=== PATIENT | male | born 1945 | race Caucasian/White ===

== ENCOUNTER 2016-12-16 06:28 | Inpatient (IN) | payer MEDICARE, OTHER ==
[2016-12-12 15:35] LABS: HEMOGLOBIN 15.5 g/dL (13.6-17.8)
[2016-12-12 15:51] LABS: BUN (BLOOD UREA NITROGEN) 23 MG/DL (6-23); CALCIUM, SERUM 9.8 MG/DL (8.5-10.4); CHLORIDE, SERUM 106 MMOL/L (96-112); CO2 (CARBON DIOXIDE) 30 MMOL/L (24-34); CREATININE 0.94 MG/DL (0.70-1.30); GFR AFRICAN AMERICAN 93 ML/MIN (>=60); GFR NON AFRICAN AMERICAN 80 ML/MIN (>=60); GLUCOSE, SERUM 88 MG/DL (60-99)
[2016-12-12 15:52] LABS: POTASSIUM, SERUM 5.2 MMOL/L (3.5-5.3); SODIUM, SERUM 141 MMOL/L (135-148)
--- NOTE | ~2016-12-16 | HP ---
History And Physical [facility] [address] [place]. [address] NAME: PETER PINON : 41 STATUS : ADM IN [facility]#: [id number] AGE: 71 ADM/REG DATE : 12/16/16 MR#: [id number] REPORT SERV DATE: 12/16/16 DICTATED BY: ARMEN BURRELL DATE: 12/16/16 REPORT STATUS : Draft TRANSCRIBED BY: MODL DATE: 12/16/16 DATE OF ADMISSION: 12/16/2016 HISTORY: The patient is a 71-year-old male with a high-grade carotid stenosis on CT scan. He has no symptoms. He has no history of stroke symptoms. He has no other current health complaints. REVIEW OF SYSTEMS: He denies chest pain, palpitations, shortness of breath, cough, GI, complaints. Denies fever, chills, or systemic complaints. Past medical history, medications, allergies are listed in full on the MAR. ILLNESSES: Aortic stenosis, coronary artery disease, hypercholesterolemia, atrial fibrillation, benign hypertension, hypothyroidism. SURGICAL HISTORY: Aortic valve repair, rotator cuff repair. SOCIAL HISTORY: Significant for a reformed smoker. FAMILY HISTORY: Noncontributory. PHYSICAL EXAMINATION: GENERAL: The patient is thin, healthy appearing, no distress. LUNGS: Clear bilaterally. HEART: Rate and rhythm. NEURO: He is alert and oriented. Preserved motor function in the lower extremities. IMPRESSION: Carotid stenosis, high grade. PLAN: The plan is for carotid endarterectomy. The risks, benefits, alternatives were discussed in detail with the patient. He expressed understanding and desired to proceed. MORIAH/CHANCE Armen Burrell M.D. / [id number] CC: Armen Burrell M.D.
--- NOTE | ~2016-12-16 | OP ---
Record Of Operation [facility] [address] [place]. [address] NAME: PETER PINON : 41 STATUS : ADM IN PAT#: [id number] AGE: 71 ADM/REG DATE : 12/16/16 MR#: [id number] REPORT SERV DATE: 12/16/16 DICTATED BY: CLINT BAKER DATE: 12/16/16 REPORT STATUS : Draft TRANSCRIBED BY: MODL DATE: 12/16/16 DATE OF PROCEDURE: 12/16/2016 PREOPERATIVE DIAGNOSIS: High-grade right carotid stenosis. POSTOPERATIVE DIAGNOSIS: High-grade right carotid stenosis. PROCEDURE: Right carotid endarterectomy. SURGEON: Clint Baker M.D. FELLOW: Henry. ANESTHESIA: General. COMPLICATIONS: None. BLOOD LOSS: 250 mL. HISTORY: The patient is a 71-year-old male with history of high-grade right carotid stenosis. It is felt he will benefit from right carotid endarterectomy. This was discussed in detail with the patient. He expressed understanding and desired to proceed. DESCRIPTION OF PROCEDURE: The patient was taken to the operating room and placed in the supine position. He was given general anesthesia without complication. Roll was placed under the shoulders and head was turned to the left. An incision was created on the anterior border of the sternocleidomastoid muscle taking care to be more than one fingerbreadth away from the angle of the mandible. Bovie cautery was used to dissect through subcutaneous tissues and platysma. Dissection was continued to identify the sternocleidomastoid muscle. Dissection was continued on the anterior border of it. Dissection was continued identifying the internal jugular vein, and dissection continued on the anterior border of it. The common facial vein was identified, freed circumferentially and ligated with 3-0 silk ties and divided. Continued dissection was performed identifying the common carotid artery, which was freed circumferentially and isolated vessel loop. The patient was given 6000 units of heparin intravenously. Received another 2000 units after one hour. Continued dissection was performed to free the internal carotid artery circumferentially beyond the area of disease. The hypoglossal nerve was identified and preserved. The external carotid artery was freed circumferentially and isolated from the surrounding tissues as well with the vessel loop. After more than 3 minutes of heparinization, the internal carotid artery was controlled with a vessel loop, followed by the common carotid artery and external carotid artery. An 11 blade was used to create an arteriotomy on the common carotid artery. This was extended longitudinally onto the internal carotid artery beyond the area of disease. A 12 shunt was placed into the internal carotid artery once good backbleeding was noted, placed into the common carotid artery restoring flow to the brain. Endarterectomy was performed in a standard fashion with feathering of the proximal endpoint and eversion endarterectomy on the external carotid Record Of Operation [address] [place]. [address] NAME: PETER PINON : 41 STATUS : ADM IN PAT#: [id number] AGE: 71 ADM/REG DATE : 12/16/16 MR#: [id number] REPORT SERV DATE: 12/16/16 DICTATED BY: CLINT BAKER DATE: 12/16/16 REPORT STATUS : Draft TRANSCRIBED BY: CHANCE DATE: 12/16/16 artery. Due to a difficult distal plaque, the arteriotomy was extended multiple times and additional endarterectomy was performed until an adequate feathering of the distal plaque was obtained. Once this was felt to be adequate, the endarterectomy site was copiously irrigated until all loose debris was removed. Once this was felt to be adequate, the endarterectomy site was closed using 8 x 80 bovine pericardial patch and running 6-0 Prolene suture. Prior to completion, the shunt was pulled from the lateral aspect. The internal and external carotid arteries were back bled. The common carotid artery was flushed. The endarterectomy site was copiously irrigated. Upon completion, flow was restored. Bleeding points along the closure were controlled with 6-0 Prolene suture. Once hemostasis was assured, Doppler was used to confirm normal signals in the common carotid, external carotid, and internal carotid arteries. Fibrillar was placed over the patch and hemostasis was assured. The incision was closed with running 2-0 Vicryl suture in the deep tissues and platysma. The skin was closed with running 4-0 Monocryl suture. Dermabond dressing was applied. The patient tolerated the procedure well. He will be extubated in the operating room and if neurologically intact, taken to recovery for continued care. MORIAH/CHANCE Clint Baker M.D. / [id number] CC: Clint Baker M.D.
[~2016-12-16 06:28] MED LIST: ASAB PO; AVAP150 PO; COREG3 PO; COZ50 PO; JANTOVEN6 MG PO; LEVOTHYROXIN112 MCG PO; LOP25 PO; NORCO1 TA1 PO; PRAVACHOL40 MG PO; [UNRECOGNIZED DRUG - OTHER] PO
[2016-12-16 08:15] LABS: PROTIME (NOT ORD) 13.4 SEC (12.0-14.5)
[2016-12-17 05:48] LABS: INTERNATIONAL NORMAL RATI 1.1 UNITS (-)
[2016-12-17] MEDS ORDERED: PLAVIX PO (13:08)
[2016-12-17] MEDS ORDERED: NORCO1 TA1 PO (13:09)
== END 2016-12-17 13:58 | disposition home or self-care (01) | DRG 39 ==
LOC: SDC/OF 06:28 → PACU 11:32 → CVICU 13:24
PROVIDERS: Surgery
PROC: 03CM0ZZ Extirpation of Matter from Right External Carotid Artery, Open Approach (ICD-10-PCS; principal; 2016-12-16 08:15)
DX: I65.21 Occlusion and stenosis of right carotid artery (principal); I35.0 Nonrheumatic aortic (valve) stenosis; I48.2 Chronic atrial fibrillation; I10 Essential (primary) hypertension; I25.10 Atherosclerotic heart disease of native coronary artery without angina pectoris; E78.00 Pure hypercholesterolemia, unspecified; E03.9 Hypothyroidism, unspecified; Z95.2 Presence of prosthetic heart valve; Z87.891 Personal history of nicotine dependence
CPT/HCPCS: 80048; 85014; 85018; 85610; 87641; 88304; 88311; 93005; A9270-GY; J0690; J2250; J2370; J2405; J2710; J3010